=== PATIENT | female | born 1965 | race Caucasian/White ===

== ENCOUNTER → 2016-10-14 | Outpatient (CLI) | payer OTHER ==
[~2016-10-14] MED LIST: FROVA2.5 MG PO; HYDROCHLOROTHIA25 M1 PO; NEXIUM40 MG PO; NORCO 5-325 TA1 EACH PO; PROTONIX40 MG PO; TOPAMAX 25 MG T25 M1 PO
== END ==
LOC: ULTRA 14:24
DX: R10.2 Pelvic and perineal pain (principal); H53.9 Unspecified visual disturbance; Z79.810 Long term (current) use of selective estrogen receptor modulators (SERMs)

== ENCOUNTER → 2017-04-07 | Outpatient (CLI) | payer OTHER | LOC: RAD 10:36 | DX: D05.11 Intraductal carcinoma in situ of right breast (principal); H53.9 Unspecified visual disturbance; Z79.810 Long term (current) use of selective estrogen receptor modulators (SERMs) ==

== ENCOUNTER → 2018-07-03 | Outpatient (CLI) | payer OTHER | LOC: RAD 13:07 | DX: Z12.31 Encounter for screening mammogram for malignant neoplasm of breast (principal) ==

== ENCOUNTER → 2019-01-12 | Outpatient (CLI) | payer OTHER | LOC: CAT 15:30 | DX: Z13.6 Encounter for screening for cardiovascular disorders (principal); E78.00 Pure hypercholesterolemia, unspecified; I25.10 Atherosclerotic heart disease of native coronary artery without angina pectoris ==

== ENCOUNTER → 2019-07-19 | Outpatient (CLI) | payer OTHER | LOC: RAD 15:09 | DX: Z12.31 Encounter for screening mammogram for malignant neoplasm of breast (principal) ==

== ENCOUNTER → 2020-07-16 | Outpatient (CLI) | payer OTHER | LOC: BC 09:47 | PROVIDERS: ATTEND Obstetrics & Gynecology | DX: Z12.31 Encounter for screening mammogram for malignant neoplasm of breast (principal) ==

== ENCOUNTER → 2021-01-01 | Outpatient (CLI) | payer OTHER | LOC: SJCVCIMAG 12-23 08:29 | PROVIDERS: ATTEND Internal Medicine Cardiovascular Disease | DX: I48.92 Unspecified atrial flutter (principal); R42 Dizziness and giddiness ==

== ENCOUNTER → 2021-07-15 | Outpatient (CLI) | payer OTHER | LOC: BC 14:02 | PROVIDERS: ATTEND Obstetrics & Gynecology | DX: Z12.31 Encounter for screening mammogram for malignant neoplasm of breast (principal); N64.89 Other specified disorders of breast ==